=== PATIENT | female | born 1995 | race Caucasian/White ===

== ENCOUNTER 2020-08-30 17:24 | Emergency (ER) | payer MEDICAID ==
[~2020-08-30] VITALS: Ht 170.2 cm; Wt 162.4 kg
[~2020-08-30 17:24] MED LIST: AXERT6.25 MG PO; CYPROHEPTADINE 44 MG PO; FLEXERIL PO; GLUCOPHAGE1000 MG PO; IBUPROFEN 600600 M1 PO; LEVOTHYROXIN0.125 M1; LEVOTHYROXINE; MAGNESIUM PO; MULTIVITAMINS; PROPRANOLOL 1010 M1 PO; PROVERA10 MG PO; RIZATRIPTAN10 MG PO; SINGULAIR 10 MG10 M1 PO; SLOW FE 160MG160 MG PO; TOPAMAX 25 MG T25 M1 PO; ZOFRAN4 MG PO; ZOLOFT 50 MG TA50 M1 PO; ZYRTEC-D TABLE1 EAC1 PO; ZYRTEC10 M2 PO
[2020-08-30 17:33] VITALS: BP 168/90
[2020-08-30] MEDS ORDERED: BUSPAR30 MG PO (17:37)
[2020-08-30] MEDS ORDERED: FLEXERIL PO (17:41)
[2020-08-30] MEDS ORDERED: NORCO 5-325 TA1 EAC2 PO (17:41)
[2020-08-30] MEDS ORDERED: IBUPROFEN 800800 M1 PO (17:41)
== END 2020-08-30 17:51 | disposition home or self-care (01) ==
LOC: M.ERS 17:24
DX: M54.31 Sciatica, right side (principal); L40.9 Psoriasis, unspecified; E03.9 Hypothyroidism, unspecified; G43.909 Migraine, unspecified, not intractable, without status migrainosus; J45.909 Unspecified asthma, uncomplicated; E66.01 Morbid (severe) obesity due to excess calories; Z68.43 Body mass index [BMI] 50.0-59.9, adult; Z86.69 Personal history of other diseases of the nervous system and sense organs

== ENCOUNTER 2021-05-23 23:07 | Emergency (ER) | payer MEDICAID ==
[~2021-05-23] VITALS: Ht 170.2 cm; Wt 158.8 kg
[~2021-05-23 23:07] MED LIST changes: +BUSPAR30 MG PO; +IBUPROFEN 800800 M1 PO; +NORCO 5-325 TA1 EAC2 PO
[2021-05-23] MEDS ORDERED: DRIZALMA SPRINK20 MG PO (23:20)
[2021-05-23] MEDS ORDERED: BUSPIRONE HCL15 MG PO (23:20)
[2021-05-23] MEDS ORDERED: JANUVIA25 MG PO (23:21)
[2021-05-23] MEDS ORDERED: LEVEMIR100 UNIT/1 (23:21)
[2021-05-24 00:03] VITALS: BP 134/79
== END 2021-05-24 00:03 | disposition left against medical advice (07) ==
LOC: M.ERS 23:07
DX: R56.9 Unspecified convulsions (principal); Z53.21 Procedure and treatment not carried out due to patient leaving prior to being seen by health care provider